=== PATIENT | female | born 1950 | race Caucasian/White ===

== ENCOUNTER → 2016-11-09 08:51 | Outpatient (CLI) | payer MEDICARE, OTHER | END | disposition home or self-care (01) | LOC: D.CT 08:51 | DX: R91.1 Solitary pulmonary nodule (principal) ==

== ENCOUNTER 2017-02-05 11:06 | Outpatient (CLI) | payer MEDICARE, OTHER | END 2017-02-05 12:00 | disposition home or self-care (01) | LOC: D.OPS 11:06 | DX: M81.0 Age-related osteoporosis without current pathological fracture (principal); Z01.812 Encounter for preprocedural laboratory examination; Z01.811 Encounter for preprocedural respiratory examination; Z01.810 Encounter for preprocedural cardiovascular examination; Z53.9 Procedure and treatment not carried out, unspecified reason ==

== ENCOUNTER 2017-03-14 09:34 | Outpatient (CLI) | payer MEDICARE, OTHER ==
[~2017-03-14] VITALS: Ht 160 cm; Wt 59.1 kg
[2017-03-14] MEDS ORDERED: PRAVASTATIN SOD10 MG PO (10:05)
[2017-03-14] MEDS ORDERED: AMBIEN10 MG PO (10:06)
[2017-03-14] MEDS ORDERED: CALCIUM 600 +1 EAC3 PO (10:06)
[2017-03-14] MEDS ORDERED: CELEXA40 MG PO (10:06)
[2017-03-14 10:20] VITALS: BP 108/72; Ht 160 cm; Wt 59.1 kg
== END 2017-03-14 10:30 ==
LOC: D.OPS 09:34
DX: M81.0 Age-related osteoporosis without current pathological fracture (principal)

== ENCOUNTER → 2017-09-17 18:13 | Outpatient (CLI) | payer MEDICARE, OTHER ==
[2017-03-14 10:20] VITALS: BMI 23.0
[~2017-09-17 18:13] MED LIST: AMBIEN10 MG PO; CALCIUM 600 +1 EAC3 PO; CELEXA40 MG PO; PRAVASTATIN SOD10 MG PO
== END | disposition home or self-care (01) ==
LOC: D.MAMMO 10:00
DX: Z12.31 Encounter for screening mammogram for malignant neoplasm of breast (principal)

== ENCOUNTER → 2017-10-31 13:01 | Outpatient (CLI) | payer MEDICARE, OTHER ==
[2017-10-31 13:52] VITALS: BP 111/67; Ht 160 cm
== END | disposition home or self-care (01) ==
LOC: D.OPS 10-17 13:00
DX: M81.0 Age-related osteoporosis without current pathological fracture (principal)

== ENCOUNTER 2018-05-29 09:25 | Outpatient (CLI) | payer MEDICARE, OTHER ==
[~2018-05-29] VITALS: Ht 160 cm; Wt 59.1 kg
[2018-05-29 10:13] VITALS: BP 108/68; Ht 160 cm; Wt 59.1 kg
== END 2018-05-29 10:35 | disposition home or self-care (01) ==
LOC: D.OPS 09:25
DX: M81.0 Age-related osteoporosis without current pathological fracture (principal); Z01.812 Encounter for preprocedural laboratory examination

== ENCOUNTER → 2018-10-13 15:33 | Outpatient (CLI) | payer MEDICARE, OTHER ==
[2018-05-29 10:13] VITALS: BMI 23.0
== END | disposition home or self-care (01) ==
LOC: D.MAMMO 09-22 11:30
DX: Z12.31 Encounter for screening mammogram for malignant neoplasm of breast (principal)

== ENCOUNTER 2018-12-02 14:07 | Outpatient (CLI) | payer MEDICARE, OTHER ==
[~2018-12-02] VITALS: Ht 160 cm; Wt 57.7 kg
[2018-12-02 14:40] VITALS: BP 114/57; Ht 160 cm; Wt 57.7 kg
--- NOTE | 2018-12-02 15:13 | NUR ---
PT LEFT UNIT AMBULATING AT 1510
== END 2018-12-02 15:10 | disposition home or self-care (01) ==
LOC: D.OPS 14:07
DX: M81.0 Age-related osteoporosis without current pathological fracture (principal); Z01.812 Encounter for preprocedural laboratory examination

== ENCOUNTER 2019-06-02 10:42 | Outpatient (CLI) | payer MEDICARE, OTHER ==
[~2019-06-02] VITALS: Ht 160 cm; Wt 57.7 kg
[2019-06-02 11:19] VITALS: Ht 160 cm; Wt 57.7 kg
== END 2019-06-02 11:27 | disposition home or self-care (01) ==
LOC: D.OPS 10:42
PROVIDERS: ATTEND Emergency Medicine
DX: M81.0 Age-related osteoporosis without current pathological fracture (principal)

== ENCOUNTER → 2019-10-20 19:00 | Outpatient (CLI) | payer MEDICARE, OTHER ==
[2019-06-02 11:19] VITALS: BMI 22.5
== END | disposition home or self-care (01) ==
LOC: D.MAMMO 15:30
PROVIDERS: ATTEND Emergency Medicine
DX: Z12.31 Encounter for screening mammogram for malignant neoplasm of breast (principal)

== ENCOUNTER 2019-12-16 11:40 | Outpatient (CLI) | payer MEDICARE, OTHER ==
[~2019-12-16] VITALS: Ht 160 cm; Wt 57.7 kg
[2019-12-16 11:58] VITALS: BP 91/50; Ht 160 cm; Wt 57.7 kg
--- NOTE | 2019-12-16 12:32 | NUR ---
PROLIA GIVEN. TOLERATED WELL. DC'D HOME. NO S/S OF ACUTE DISTRESS NOTED. ADVISED TO CALL OR COME BACK IF ANY PROBLEMS.
== END 2019-12-16 12:35 | disposition home or self-care (01) ==
LOC: D.OPS 11:40
PROVIDERS: ATTEND Emergency Medicine
DX: M81.0 Age-related osteoporosis without current pathological fracture (principal)